=== PATIENT | female | born 1980 | race African-American/Black ===

== ENCOUNTER 2016-12-29 09:01 | Emergency (ER) | payer MEDICARE | END 2016-12-29 10:18 | disposition home or self-care (01) | LOC: D.ER 09:01 | DX: S16.1XXA Strain of muscle, fascia and tendon at neck level, initial encounter (principal); X50.0XXA Overexertion from strenuous movement or load, initial encounter; Y93.89 Activity, other specified; Y92.89 Other specified places as the place of occurrence of the external cause; M79.1 Myalgia; F17.200 Nicotine dependence, unspecified, uncomplicated ==

== ENCOUNTER 2017-01-31 09:41 | Emergency (ER) | payer MEDICARE ==
[2017-01-31 10:31] LABS: APPEARANCE CLOUDY (CLEAR); BACTERIA MANY /hpf (NONE SEEN); BILIRUBIN NEGATIVE (NEGATIVE); COLOR YELLOW (YELLOW); GLUCOSE NEGATIVE (NEGATIVE); KETONE MODERATE mg/dL (NEGATIVE); NITRITE POSITIVE (NEGATIVE); PROTEIN NEGATIVE (NEGATIVE); RED CELLS - URINE 0-5 /hpf (0-5); UROBILINOGEN NORMAL (NORMAL); WHITE CELLS - URINE 25-50 /hpf (0-5)
[2017-01-31 10:32] LABS: MUCUS <1+ /lpf (NONE SEEN); YEAST RARE /hpf (NONE SEEN)
[2017-01-31 11:02] LABS: BASOPHILS 0.3 % (0-2); EOSINOPHILS 0.7 % (0-7); HEMATOCRIT 41.3 % (36.0-48.0); IMMATURE GRANULOCYTES 0.2 % (0-5); LYMPHOCYTES 33.7 % (15-50); MCH 32.1 pg (26.0-34.0); MCHC 33.9 g/dL (31.0-37.0); MCV 94.7 fL (80.0-100.0); MEAN PLATELET VOLUME 10.7 fL (7.4-10.4); MONOCYTES 7.3 % (2-11); NEUTROPHILS 57.8 % (40-80); PLATELET COUNT 280 10x3/uL (130-400); RBC 4.36 10x6/uL (4.00-5.40)
[2017-01-31 11:18] LABS: ALBUMIN 4.5 g/dL (3.4-5.0); ALKALINE PHOSPHATASE 59 U/L (46-116); ALT (SGPT) 48 U/L (10-68); CALC OSMOLALITY 269 mosm/kg (275-300); CALCIUM 9.4 mg/dL (8.5-10.1); CARBON DIOXIDE 24.4 mmol/L (21.0-32.0); CHLORIDE - SERUM 98 mmol/L (98-107); CREATININE - SERUM 0.6 mg/dL (0.6-1.3); GLUCOSE 90 mg/dL (74-106); POTASSIUM - SERUM 4.1 mmol/L (3.5-5.1); PROTEIN - SERUM 8.6 g/dL (6.4-8.2); SODIUM 136 mmol/L (136-145); UREA NITROGEN 8 mg/dL (7-18); eGFR NON AFRICAN AMERICAN > 90 mL/min (90-120)
== END 2017-01-31 11:11 | disposition home or self-care (01) ==
LOC: D.ER 09:41
PROVIDERS: Family Medicine
DX: F23 Brief psychotic disorder (principal)

== ENCOUNTER 2017-02-25 09:05 | Emergency (ER) | payer MEDICARE | END 2017-02-25 10:00 | disposition home or self-care (01) | LOC: D.ER 09:05 | DX: M79.641 Pain in right hand (principal); F17.200 Nicotine dependence, unspecified, uncomplicated ==

== ENCOUNTER 2017-02-26 07:33 | Emergency (ER) | payer MEDICARE ==
[2017-02-26 07:56] LABS: BASOPHILS 0.5 % (0-2); EOSINOPHILS 8.5 % (0-7); HEMATOCRIT 38.1 % (36.0-48.0); HEMOGLOBIN 13.1 g/dL (12-16); LYMPHOCYTES 42.6 % (15-50); MCH 31.9 pg (26.0-34.0); MCHC 34.4 g/dL (31.0-37.0); MCV 92.7 fL (80.0-100.0); MEAN PLATELET VOLUME 9.6 fL (7.4-10.4); MONOCYTES 8.2 % (2-11); NEUTROPHILS 40.2 % (40-80); RBC 4.11 10x6/uL (4.00-5.40); RDW 13.7 % (11.5-14.5)
[2017-02-26 08:03] LABS: PLATELET COUNT 347 10x3/uL (130-400)
[2017-02-26 08:10] LABS: ALBUMIN 4.1 g/dL (3.4-5.0); ALKALINE PHOSPHATASE 53 U/L (46-116); ALT (SGPT) 39 U/L (10-68); BILIRUBIN - TOTAL 0.43 mg/dL (0.2-1.3); CALC OSMOLALITY 274 mosm/kg (275-300); CALCIUM 9.2 mg/dL (8.5-10.1); CARBON DIOXIDE 23.8 mmol/L (21.0-32.0); CHLORIDE - SERUM 104 mmol/L (98-107); CREATININE - SERUM 0.6 mg/dL (0.6-1.3); GLUCOSE 89 mg/dL (74-106); POTASSIUM - SERUM 4.3 mmol/L (3.5-5.1); PROTEIN - SERUM 7.7 g/dL (6.4-8.2); SODIUM 140 mmol/L (136-145); UREA NITROGEN 3 mg/dL (7-18); VALPROIC ACID (DEPAKOTE) 3.3 ug/mL (50.0-100.0); eGFR NON AFRICAN AMERICAN > 90 mL/min (90-120)
[2017-02-26 09:00] LABS: HCG URINE NEGATIVE (NEGATIVE)
[2017-02-26 09:07] LABS: APPEARANCE CLOUDY (CLEAR); BILIRUBIN NEGATIVE (NEGATIVE); COLOR YELLOW (YELLOW); GLUCOSE NEGATIVE (NEGATIVE); KETONE NEGATIVE (NEGATIVE); NITRITE POSITIVE (NEGATIVE); PROTEIN NEGATIVE (NEGATIVE); UROBILINOGEN NORMAL (NORMAL)
[2017-02-26 09:08] LABS: BACTERIA MANY /hpf (NONE SEEN); EPITHELIAL CELLS 0-5 /hpf (0-5); MUCUS >1+ /lpf (NONE SEEN); RED CELLS - URINE NONE SEEN /hpf (0-5); WHITE CELLS - URINE 0-5 /hpf (0-5)
[2017-02-26 09:14] LABS: UDS - AMPHET NEGATIVE QUAL (NEGATIVE); UDS - BARB NEGATIVE QUAL (NEGATIVE); UDS - BENZO NEGATIVE QUAL (NEGATIVE); UDS - COCAINE NEGATIVE QUAL (NEGATIVE); UDS - OPIATE NEGATIVE QUAL (NEGATIVE); UDS - PCP NEGATIVE QUAL (NEGATIVE); UDS - THC POSITIVE QUAL (NEGATIVE)
== END 2017-02-26 11:21 | disposition home or self-care (01) ==
LOC: D.ER 07:33
PROVIDERS: Emergency Medicine
DX: F31.2 Bipolar disorder, current episode manic severe with psychotic features (principal); F10.129 Alcohol abuse with intoxication, unspecified; N39.0 Urinary tract infection, site not specified

== ENCOUNTER 2017-03-08 10:53 | Emergency (ER) | payer MEDICARE ==
[2017-03-08 11:50] LABS: HCG URINE NEGATIVE (NEGATIVE)
[2017-03-08 11:53] LABS: UDS - AMPHET NEGATIVE QUAL (NEGATIVE); UDS - BARB NEGATIVE QUAL (NEGATIVE); UDS - BENZO NEGATIVE QUAL (NEGATIVE); UDS - COCAINE NEGATIVE QUAL (NEGATIVE); UDS - OPIATE NEGATIVE QUAL (NEGATIVE); UDS - PCP NEGATIVE QUAL (NEGATIVE); UDS - THC POSITIVE QUAL (NEGATIVE)
[2017-03-08 11:58] LABS: APPEARANCE CLOUDY (CLEAR); BACTERIA MANY /hpf (NONE SEEN); BILIRUBIN NEGATIVE (NEGATIVE); COLOR YELLOW (YELLOW); EPITHELIAL CELLS 0-5 /hpf (0-5); GLUCOSE NEGATIVE (NEGATIVE); KETONE SMALL mg/dL (NEGATIVE); NITRITE POSITIVE (NEGATIVE); PROTEIN NEGATIVE (NEGATIVE); UROBILINOGEN NORMAL (NORMAL); WHITE CELLS - URINE 0-5 /hpf (0-5)
[2017-03-08 11:59] LABS: MUCUS <1+ /lpf (NONE SEEN)
== END 2017-03-08 12:52 | disposition home or self-care (01) ==
LOC: D.ER 10:53
PROVIDERS: Family Medicine
DX: Z86.59 Personal history of other mental and behavioral disorders (principal); F22 Delusional disorders

== ENCOUNTER → 2017-03-31 15:45 | Outpatient (CLI) | payer MEDICARE ==
[2017-03-31 17:33] LABS: BASOPHILS 0.5 % (0-2); EOSINOPHILS 13.5 % (0-7); HEMOGLOBIN 13.3 g/dL (12-16); IMMATURE GRANULOCYTES 0.1 % (0-5); LYMPHOCYTES 34.3 % (15-50); MCH 32.4 pg (26.0-34.0); MCHC 34.1 g/dL (31.0-37.0); MCV 95.1 fL (80.0-100.0); MONOCYTES 5.4 % (2-11); NEUTROPHILS 46.2 % (40-80); PLATELET COUNT 322 10x3/uL (130-400); RDW 13.7 % (11.5-14.5); WBC 7.5 10x3/uL (4.8-10.8)
[2017-03-31 17:54] LABS: CALC OSMOLALITY 278 mosm/kg (275-300); CALCIUM 9.1 mg/dL (8.5-10.1); CARBON DIOXIDE 27.3 mmol/L (21.0-32.0); CHLORIDE - SERUM 103 mmol/L (98-107); CREATININE - SERUM 0.5 mg/dL (0.6-1.3); GLUCOSE 97 mg/dL (74-106); POTASSIUM - SERUM 4.5 mmol/L (3.5-5.1); SODIUM 140 mmol/L (136-145); THYROID STIMULATING HORMONE 0.76 uIU/mL (0.36-3.74); UREA NITROGEN 13 mg/dL (7-18); VALPROIC ACID (DEPAKOTE) 32.6 ug/mL (50.0-100.0); eGFR NON AFRICAN AMERICAN > 90 mL/min (90-120)
== END | disposition home or self-care (01) ==
LOC: D.LAB 15:45
PROVIDERS: Psychiatry & Neurology Psychiatry
DX: Z51.81 Encounter for therapeutic drug level monitoring (principal); Z79.899 Other long term (current) drug therapy

== ENCOUNTER 2017-04-12 07:09 | Emergency (ER) | payer MEDICARE | END 2017-04-12 07:40 | disposition home or self-care (01) | LOC: D.ER 07:09 | DX: K42.9 Umbilical hernia without obstruction or gangrene (principal) ==

== ENCOUNTER 2018-02-03 16:20 | Observation (INO) | payer MEDICARE ==
[~2018-02-03] VITALS: Ht 167.6 cm; Wt 65.9 kg
[2018-02-03 16:47] LABS: BASOPHILS 0.2 % (0-2); EOSINOPHILS 0.5 % (0-7); HEMATOCRIT 39.6 % (36.0-48.0); HEMOGLOBIN 13.6 g/dL (12-16); IMMATURE GRANULOCYTES 0.3 % (0-5); LYMPHOCYTES 17.4 % (15-50); MCH 31.7 pg (26.0-34.0); MCHC 34.3 g/dL (31.0-37.0); MCV 92.3 fL (80.0-100.0); MEAN PLATELET VOLUME 9.8 fL (7.4-10.4); MONOCYTES 9.3 % (2-11); NEUTROPHILS 72.3 % (40-80); RBC 4.29 10x6/uL (4.00-5.40); RDW 13.6 % (11.5-14.5); WBC 9.7 10x3/uL (4.8-10.8)
[2018-02-03 16:49] LABS: PLATELET COUNT 230 10x3/uL (130-400)
[2018-02-03 17:04] LABS: ALBUMIN 3.9 g/dL (3.4-5.0); ANION GAP 25.4 mmol/L (8-16); BILIRUBIN - TOTAL 0.75 mg/dL (0.2-1.3); CALCIUM 8.6 mg/dL (8.5-10.1); CARBON DIOXIDE 15.8 mmol/L (21.0-32.0); CREATININE - SERUM 0.9 mg/dL (0.6-1.3); MAGNESIUM - SERUM 1.7 mg/dL (1.8-2.4); POTASSIUM - SERUM 3.2 mmol/L (3.5-5.1); PROTEIN - SERUM 8.1 g/dL (6.4-8.2)
[2018-02-03 17:48] LABS: APPEARANCE CLEAR (CLEAR); BILIRUBIN NEGATIVE (NEGATIVE); COLOR YELLOW (YELLOW); GLUCOSE NEGATIVE (NEGATIVE); HCG URINE NEGATIVE (NEGATIVE); KETONE LARGE mg/dL (NEGATIVE); NITRITE NEGATIVE (NEGATIVE); PROTEIN NEGATIVE (NEGATIVE); UROBILINOGEN NORMAL (NORMAL)
[2018-02-03 17:49] LABS: BACTERIA MODERATE /hpf (NONE SEEN); EPITHELIAL CELLS 0-5 /hpf (0-5); RED CELLS - URINE 0-5 /hpf (0-5)
[2018-02-03 17:50] LABS: UDS - AMPHET NEGATIVE QUAL (NEGATIVE); UDS - BARB NEGATIVE QUAL (NEGATIVE); UDS - BENZO NEGATIVE QUAL (NEGATIVE); UDS - COCAINE NEGATIVE QUAL (NEGATIVE); UDS - OPIATE NEGATIVE QUAL (NEGATIVE); UDS - PCP NEGATIVE QUAL (NEGATIVE); UDS - THC POSITIVE QUAL (NEGATIVE)
[2018-02-04 01:16] VITALS: BP 143/86; Ht 167.6 cm; Wt 65.9 kg
[2018-02-04 05:24] VITALS: BP 152/85
[2018-02-04 06:20] LABS: CALC OSMOLALITY 271 mosm/kg (275-300); CALCIUM 8.1 mg/dL (8.5-10.1); CHLORIDE - SERUM 103 mmol/L (98-107); GLUCOSE 76 mg/dL (74-106); SODIUM 138 mmol/L (136-145); THYROID STIMULATING HORMONE 1.58 uIU/mL (0.36-3.74); UREA NITROGEN 5 mg/dL (7-18)
[2018-02-04 06:23] LABS: CARBON DIOXIDE 21.9 mmol/L (21.0-32.0); CREATININE - SERUM 0.6 mg/dL (0.6-1.3); POTASSIUM - SERUM 3.9 mmol/L (3.5-5.1); eGFR NON AFRICAN AMERICAN > 90 mL/min (90-120)
[2018-02-04 08:18] VITALS: BP 123/76
== END 2018-02-04 09:15 | disposition left against medical advice (07) ==
LOC: D.ER 16:20 → OBSVTIME 18:47 → D.M3 18:47
PROVIDERS: Family Medicine
DX: R44.0 Auditory hallucinations (principal); F31.9 Bipolar disorder, unspecified; E87.6 Hypokalemia; E87.2 Acidosis

== ENCOUNTER 2018-02-09 07:23 | Emergency (ER) | payer MEDICARE ==
[2018-02-09 07:38] VITALS: Ht 167.6 cm
[2018-02-09 08:25] LABS: BASOPHILS 0.5 % (0-2); EOSINOPHILS 0.7 % (0-7); HEMATOCRIT 36.1 % (36.0-48.0); HEMOGLOBIN 12.4 g/dL (12-16); IMMATURE GRANULOCYTES 0.3 % (0-5); LYMPHOCYTES 15.9 % (15-50); MCH 31.9 pg (26.0-34.0); MCHC 34.3 g/dL (31.0-37.0); MCV 92.8 fL (80.0-100.0); MEAN PLATELET VOLUME 9.5 fL (7.4-10.4); NEUTROPHILS 73.6 % (40-80); PLATELET COUNT 266 10x3/uL (130-400); RBC 3.89 10x6/uL (4.00-5.40); RDW 13.9 % (11.5-14.5)
[2018-02-09 08:49] LABS: ALBUMIN 3.7 g/dL (3.4-5.0); ALKALINE PHOSPHATASE 42 U/L (46-116); ALT (SGPT) 64 U/L (10-68); BILIRUBIN - TOTAL 0.71 mg/dL (0.2-1.3); CALC OSMOLALITY 271 mosm/kg (275-300); CALCIUM 8.7 mg/dL (8.5-10.1); CARBON DIOXIDE 19.5 mmol/L (21.0-32.0); CHLORIDE - SERUM 100 mmol/L (98-107); CREATININE - SERUM 0.7 mg/dL (0.6-1.3); GLUCOSE 76 mg/dL (74-106); POTASSIUM - SERUM 3.4 mmol/L (3.5-5.1); PROTEIN - SERUM 7.5 g/dL (6.4-8.2); SODIUM 137 mmol/L (136-145); UREA NITROGEN 10 mg/dL (7-18); eGFR NON AFRICAN AMERICAN > 90 mL/min (90-120)
[2018-02-09 09:04] LABS: APPEARANCE HAZY (CLEAR); BILIRUBIN NEGATIVE (NEGATIVE); COLOR DK YELLOW (YELLOW); GLUCOSE NEGATIVE (NEGATIVE); KETONE LARGE mg/dL (NEGATIVE); NITRITE NEGATIVE (NEGATIVE); PROTEIN 1+ mg/dL (NEGATIVE); SPECIFIC GRAVITY 1.025 (1.005-1.020); UROBILINOGEN NORMAL (NORMAL)
[2018-02-09 09:05] LABS: UDS - AMPHET NEGATIVE QUAL (NEGATIVE); UDS - BARB NEGATIVE QUAL (NEGATIVE); UDS - BENZO NEGATIVE QUAL (NEGATIVE); UDS - COCAINE NEGATIVE QUAL (NEGATIVE); UDS - OPIATE NEGATIVE QUAL (NEGATIVE); UDS - PCP NEGATIVE QUAL (NEGATIVE); UDS - THC POSITIVE QUAL (NEGATIVE)
[2018-02-09 09:07] LABS: CKMB 11.5 U/L (0.0-3.6); CREATINE KINASE 2719 UL (21-215); LIPASE 62 U/L (73-393); MAGNESIUM - SERUM 1.7 mg/dL (1.8-2.4)
[2018-02-09 09:08] LABS: BACTERIA MODERATE /hpf (NONE SEEN); EPITHELIAL CELLS OCC /hpf (0-5); MUCUS >1+ /lpf (NONE SEEN); RED CELLS - URINE 0-5 /hpf (0-5)
[2018-02-09 10:34] VITALS: BP 142/078
== END 2018-02-09 10:36 | disposition home or self-care (01) ==
LOC: D.ER 07:23
PROVIDERS: Family Medicine
DX: F29 Unspecified psychosis not due to a substance or known physiological condition (principal)

== ENCOUNTER 2018-02-20 01:55 | Emergency (ER) | payer MEDICARE, MEDICAID ==
[~2018-02-20] VITALS: Ht 167.6 cm; Wt 59.1 kg
[2018-02-20 01:56] VITALS: BP 154/105; Ht 167.6 cm; Wt 59.1 kg
[2018-02-20 02:53] LABS: BASOPHILS 0.6 % (0-2); EOSINOPHILS 3.6 % (0-7); HEMATOCRIT 41.6 % (36.0-48.0); HEMOGLOBIN 14.2 g/dL (12-16); LYMPHOCYTES 37.1 % (15-50); MCH 32.2 pg (26.0-34.0); MCHC 34.1 g/dL (31.0-37.0); MCV 94.3 fL (80.0-100.0); MONOCYTES 8.2 % (2-11); NEUTROPHILS 50.5 % (40-80); RBC 4.41 10x6/uL (4.00-5.40); RDW 13.3 % (11.5-14.5); WBC 5.3 10x3/uL (4.8-10.8)
[2018-02-20 02:54] LABS: APPEARANCE CLEAR (CLEAR); BILIRUBIN NEGATIVE (NEGATIVE); COLOR YELLOW (YELLOW); GLUCOSE NEGATIVE (NEGATIVE); KETONE NEGATIVE (NEGATIVE); NITRITE NEGATIVE (NEGATIVE); PROTEIN NEGATIVE (NEGATIVE); SPECIFIC GRAVITY 1.015 (1.005-1.020); UROBILINOGEN NORMAL (NORMAL)
[2018-02-20 02:57] LABS: HCG SERUM NEGATIVE (NEGATIVE)
[2018-02-20 02:58] LABS: PLATELET COUNT 362 10x3/uL (130-400)
[2018-02-20 03:01] LABS: UDS - AMPHET NEGATIVE QUAL (NEGATIVE); UDS - BARB NEGATIVE QUAL (NEGATIVE); UDS - BENZO NEGATIVE QUAL (NEGATIVE); UDS - COCAINE NEGATIVE QUAL (NEGATIVE); UDS - OPIATE NEGATIVE QUAL (NEGATIVE); UDS - PCP NEGATIVE QUAL (NEGATIVE); UDS - THC POSITIVE QUAL (NEGATIVE)
[2018-02-20 03:11] LABS: CALC OSMOLALITY 273 mosm/kg (275-300); CHLORIDE - SERUM 99 mmol/L (98-107); CREATININE - SERUM 0.7 mg/dL (0.6-1.3); GLUCOSE 76 mg/dL (74-106); POTASSIUM - SERUM 3.3 mmol/L (3.5-5.1); SODIUM 138 mmol/L (136-145); UREA NITROGEN 10 mg/dL (7-18); eGFR NON AFRICAN AMERICAN > 90 mL/min (90-120)
== END 2018-02-20 03:10 | disposition left against medical advice (07) ==
LOC: D.ER 01:55
PROVIDERS: Family Medicine
DX: F23 Brief psychotic disorder (principal); R45.1 Restlessness and agitation; F17.200 Nicotine dependence, unspecified, uncomplicated

== ENCOUNTER 2018-03-15 05:28 | Emergency (ER) | payer MEDICARE, MEDICAID ==
[~2018-03-15] VITALS: Ht 170.2 cm; Wt 57.7 kg
[2018-03-15 05:33] VITALS: Ht 170.2 cm; Wt 57.7 kg
[2018-03-15] MEDS ORDERED: REMERON15 MG PO (05:35)
[2018-03-15] MEDS ORDERED: INVEGA 3 MG ER T3 MG PO (05:35)
[2018-03-15] MEDS ORDERED: DEPAKOTE500 MG PO (05:35)
[2018-03-15 06:34] VITALS: BP 135/69
== END 2018-03-15 06:36 | disposition left against medical advice (07) ==
LOC: D.ER 05:28
DX: F31.9 Bipolar disorder, unspecified (principal); F17.200 Nicotine dependence, unspecified, uncomplicated

== ENCOUNTER 2018-03-15 22:39 | Emergency (ER) | payer MEDICARE, MEDICAID ==
[~2018-03-15] VITALS: Ht 170.2 cm; Wt 63.6 kg
[~2018-03-15 22:39] MED LIST: DEPAKOTE500 MG PO; INVEGA 3 MG ER T3 MG PO; REMERON15 MG PO
[2018-03-15 22:42] VITALS: BP 129/59; Ht 170.2 cm; Wt 63.6 kg
[2018-03-15 23:20] LABS: BASOPHILS 0.4 % (0-2); EOSINOPHILS 4.3 % (0-7); HEMOGLOBIN 12.4 g/dL (12-16); LYMPHOCYTES 41.1 % (15-50); MCH 31.6 pg (26.0-34.0); MCHC 34.4 g/dL (31.0-37.0); MCV 91.8 fL (80.0-100.0); MEAN PLATELET VOLUME 10.2 fL (7.4-10.4); MONOCYTES 8.4 % (2-11); NEUTROPHILS 45.8 % (40-80); RBC 3.92 10x6/uL (4.00-5.40); WBC 4.9 10x3/uL (4.8-10.8)
[2018-03-15 23:21] LABS: PLATELET COUNT 285 10x3/uL (130-400)
[2018-03-15 23:37] LABS: ALKALINE PHOSPHATASE 50 U/L (46-116); ALT (SGPT) 41 U/L (10-68); BILIRUBIN - TOTAL 0.79 mg/dL (0.2-1.3); CALC OSMOLALITY 275 mosm/kg (275-300); CALCIUM 8.8 mg/dL (8.5-10.1); CARBON DIOXIDE 22.4 mmol/L (21.0-32.0); CHLORIDE - SERUM 102 mmol/L (98-107); CREATININE - SERUM 0.6 mg/dL (0.6-1.3); GLUCOSE 99 mg/dL (74-106); POTASSIUM - SERUM 3.4 mmol/L (3.5-5.1); PROTEIN - SERUM 7.7 g/dL (6.4-8.2); SODIUM 139 mmol/L (136-145); UREA NITROGEN 7 mg/dL (7-18); eGFR NON AFRICAN AMERICAN > 90 mL/min (90-120)
[2018-03-15 23:38] LABS: MAGNESIUM - SERUM 1.8 mg/dL (1.8-2.4)
[2018-03-16 00:17] LABS: UDS - AMPHET NEGATIVE QUAL (NEGATIVE); UDS - BARB NEGATIVE QUAL (NEGATIVE); UDS - BENZO NEGATIVE QUAL (NEGATIVE); UDS - COCAINE NEGATIVE QUAL (NEGATIVE); UDS - OPIATE NEGATIVE QUAL (NEGATIVE); UDS - PCP NEGATIVE QUAL (NEGATIVE); UDS - THC POSITIVE QUAL (NEGATIVE)
[2018-03-16 00:22] LABS: APPEARANCE CLOUDY (CLEAR); BILIRUBIN NEGATIVE (NEGATIVE); COLOR DK YELLOW (YELLOW); GLUCOSE NEGATIVE (NEGATIVE); HCG URINE NEGATIVE (NEGATIVE); KETONE NEGATIVE (NEGATIVE); NITRITE NEGATIVE (NEGATIVE); PROTEIN 1+ mg/dL (NEGATIVE); SPECIFIC GRAVITY 1.025 (1.005-1.020); UROBILINOGEN NORMAL (NORMAL)
[2018-03-16 00:24] LABS: BACTERIA FEW /hpf (NONE SEEN); EPITHELIAL CELLS 0-5 /hpf (0-5); MUCUS >1+ /lpf (NONE SEEN); RED CELLS - URINE 0-5 /hpf (0-5)
== END 2018-03-16 00:33 | disposition home or self-care (01) ==
LOC: D.ER 22:39
PROVIDERS: Family Medicine
DX: F22 Delusional disorders (principal); F17.200 Nicotine dependence, unspecified, uncomplicated

== ENCOUNTER 2018-06-17 11:44 | Emergency (ER) | payer MEDICARE ==
[2018-06-17 11:54] VITALS: BMI 19.0
[2018-06-17 12:32] LABS: BASOPHILS 0.7 % (0-2); HEMOGLOBIN 13.3 g/dL (12-16); IMMATURE GRANULOCYTES 0.2 % (0-5); LYMPHOCYTES 28.5 % (15-50); MCH 31.1 pg (26.0-34.0); MCHC 34.1 g/dL (31.0-37.0); MCV 91.1 fL (80.0-100.0); MEAN PLATELET VOLUME 9.7 fL (7.4-10.4); MONOCYTES 6.4 % (2-11); NEUTROPHILS 62.2 % (40-80); RBC 4.28 10x6/uL (4.00-5.40); RDW 13.2 % (11.5-14.5); WBC 5.9 10x3/uL (4.8-10.8)
[2018-06-17 12:33] LABS: INR 1.03 (0.85-1.17)
[2018-06-17 12:34] LABS: D-DIMER-QUANTITATIVE 0.32 ug/mLFEU (0.20-0.54); HCG SERUM NEGATIVE (NEGATIVE); PLATELET COUNT 381 10x3/uL (130-400)
[2018-06-17 12:36] LABS: ALBUMIN 3.6 g/dL (3.4-5.0); ALKALINE PHOSPHATASE 62 U/L (46-116); ALT (SGPT) 24 U/L (10-68); BILIRUBIN - TOTAL 0.45 mg/dL (0.2-1.3); CALC OSMOLALITY 270 mosm/kg (275-300); CALCIUM 8.8 mg/dL (8.5-10.1); CARBON DIOXIDE 26.1 mmol/L (21.0-32.0); CHLORIDE - SERUM 102 mmol/L (98-107); CREATININE - SERUM 0.8 mg/dL (0.6-1.3); GLUCOSE 93 mg/dL (74-106); POTASSIUM - SERUM 3.6 mmol/L (3.5-5.1); PROTEIN - SERUM 7.7 g/dL (6.4-8.2); SODIUM 137 mmol/L (136-145); UREA NITROGEN 4 mg/dL (7-18); eGFR NON AFRICAN AMERICAN 85 mL/min (90-120)
[2018-06-17 12:48] LABS: CKMB 1.3 U/L (0.0-3.6); CREATINE KINASE 277 UL (21-215); PRO BNP 89 pg/mL (0-125)
[2018-06-17 12:49] LABS: TROPONIN-I < 0.017 ng/mL (0.000-0.060)
[2018-06-17] MEDS ORDERED: AUGMENTIN 875-11 TAB PO (12:56)
[2018-06-17 13:08] VITALS: BP 128/68
== END 2018-06-17 13:10 | disposition home or self-care (01) ==
LOC: D.ER 11:44
PROVIDERS: Family Medicine
DX: J40 Bronchitis, not specified as acute or chronic (principal); R04.2 Hemoptysis

== ENCOUNTER 2018-06-20 15:56 | Emergency (ER) | payer MEDICARE ==
[~2018-06-20 15:56] MED LIST changes: +AUGMENTIN 875-11 TAB PO
[2018-06-20 16:03] VITALS: BP 116/68; Ht 170.2 cm
== END 2018-06-20 16:45 | disposition home or self-care (01) ==
LOC: D.ER 15:56
DX: F43.9 Reaction to severe stress, unspecified (principal)

== ENCOUNTER 2019-02-21 13:08 | Emergency (ER) | payer SELFPAY ==
[~2019-02-21] VITALS: Ht 170.2 cm; Wt 61.4 kg
[2019-02-21 13:22] VITALS: Ht 170.2 cm; Wt 61.4 kg
[2019-02-21] MEDS ORDERED: TYLENOL W/CODEI1 TAB PO ×2 (13:25→13:49)
[2019-02-21] MEDS ORDERED: HYDROCODON-ACE1 EAC2 PO (13:26)
[2019-02-21] MEDS ORDERED: HYDROCODON-ACE1 EA10 PO (13:26)
[2019-02-21] MEDS ORDERED: PROTONIX20 MG PO (13:49)
[2019-02-21 14:03] LABS: APPEARANCE CLOUDY (CLEAR); BILIRUBIN NEGATIVE (NEGATIVE); COLOR YELLOW (YELLOW); GLUCOSE NEGATIVE (NEGATIVE); KETONE SMALL mg/dL (NEGATIVE); NITRITE NEGATIVE (NEGATIVE); PROTEIN NEGATIVE (NEGATIVE); RED CELLS - URINE RARE /hpf (0-5); SPECIFIC GRAVITY 1.025 (1.005-1.020); UROBILINOGEN NORMAL (NORMAL)
[2019-02-21 14:04] LABS: BACTERIA MODERATE /hpf (NEGATIVE); MUCUS <1+ /lpf (NONE SEEN)
[2019-02-21 14:15] LABS: HCG URINE NEGATIVE (NEGATIVE)
[2019-02-21 14:31] VITALS: BP 144/89
== END 2019-02-21 14:46 | disposition home or self-care (01) ==
LOC: D.ER 13:08
PROVIDERS: Emergency Medicine
DX: R10.13 Epigastric pain (principal)

== ENCOUNTER 2019-05-26 09:16 | Emergency (ER) | payer OTHER ==
[~2019-05-26] VITALS: Ht 170.2 cm; Wt 56.8 kg
[~2019-05-26 09:16] MED LIST changes: +HYDROCODON-ACE1 EA10 PO; +HYDROCODON-ACE1 EAC2 PO; +PROTONIX20 MG PO; +TYLENOL W/CODEI1 TAB PO
[2019-05-26 09:21] VITALS: Ht 170.2 cm; Wt 56.8 kg
[2019-05-26 09:40] LABS: BASOPHILS 0.8 % (0-2); EOSINOPHILS 3.8 % (0-7); HEMATOCRIT 41.6 % (36.0-48.0); HEMOGLOBIN 13.8 g/dL (12-16); IMMATURE GRANULOCYTES 0.2 % (0-5); LYMPHOCYTES 28.1 % (15-50); MCH 30.5 pg (26.0-34.0); MCHC 33.2 g/dL (31.0-37.0); MEAN PLATELET VOLUME 9.5 fL (7.4-10.4); MONOCYTES 7.4 % (2-11); NEUTROPHILS 59.7 % (40-80); PLATELET COUNT 384 10x3/uL (130-400); RBC 4.52 10x6/uL (4.00-5.40)
[2019-05-26 09:48] LABS: APTT 29.8 SECONDS (22.8-39.4); PROTIME 13.1 SECONDS (11.6-15.0)
[2019-05-26 09:50] LABS: CALC OSMOLALITY 272 mosm/kg (275-300); CALCIUM 9.3 mg/dL (8.5-10.1); CARBON DIOXIDE 24.7 mmol/L (21.0-32.0); CHLORIDE - SERUM 101 mmol/L (98-107); CREATININE - SERUM 0.8 mg/dL (0.6-1.3); D-DIMER-QUANTITATIVE < 0.27 ug/mLFEU (0.20-0.54); GLUCOSE 113 mg/dL (74-106); POTASSIUM - SERUM 3.5 mmol/L (3.5-5.1); SODIUM 137 mmol/L (136-145); UREA NITROGEN 6 mg/dL (7-18); eGFR NON AFRICAN AMERICAN 85 mL/min (90-120)
[2019-05-26 10:07] LABS: ALBUMIN 4.5 g/dL (3.4-5.0); ALKALINE PHOSPHATASE 75 U/L (30-120); ALT (SGPT) 26 U/L (10-68); BILIRUBIN - TOTAL 0.74 mg/dL (0.2-1.3); CKMB 0.2 U/L (0.0-3.6); CREATINE KINASE 178 UL (21-215); PRO BNP 46 pg/mL (0-125); PROTEIN - SERUM 9.2 g/dL (6.4-8.2)
[2019-05-26 10:08] LABS: TROPONIN-I < 0.017 ng/mL (0.000-0.060)
[2019-05-26 10:24] VITALS: BP 122/68
== END 2019-05-26 10:25 | disposition home or self-care (01) ==
LOC: D.ER 09:16
PROVIDERS: Family Medicine
DX: R06.02 Shortness of breath (principal); Z72.0 Tobacco use

== ENCOUNTER 2019-06-02 05:14 | Emergency (ER) | payer OTHER ==
[~2019-06-02] VITALS: Ht 170.2 cm; Wt 57.6 kg
[2019-06-02 05:20] VITALS: Ht 170.2 cm; Wt 57.6 kg
[2019-06-02 06:55] VITALS: BP 122/77
== END 2019-06-02 06:57 | disposition home or self-care (01) ==
LOC: D.ER 05:14
DX: R05 Cough (principal); R06.02 Shortness of breath

== ENCOUNTER 2019-06-02 15:08 | Emergency (ER) | payer OTHER ==
[2019-06-02 15:10] VITALS: Ht 170.2 cm
--- NOTE | 2019-06-02 15:45 | NUR ---
According to the suicide screen, the patient scores low for suicide and she will not need a 1:1 observation. Suicide flyer provided.
[2019-06-02 15:50] LABS: BASOPHILS 0.6 % (0-2); EOSINOPHILS 0.4 % (0-7); HEMATOCRIT 36.1 % (36.0-48.0); HEMOGLOBIN 11.9 g/dL (12-16); IMMATURE GRANULOCYTES 0.2 % (0-5); LYMPHOCYTES 24.4 % (15-50); MCH 30.4 pg (26.0-34.0); MCV 92.3 fL (80.0-100.0); MEAN PLATELET VOLUME 9.6 fL (7.4-10.4); MONOCYTES 7.4 % (2-11); RBC 3.91 10x6/uL (4.00-5.40); RDW 14.2 % (11.5-14.5)
[2019-06-02 15:51] LABS: PLATELET COUNT 287 10x3/uL (130-400)
[2019-06-02 16:00] LABS: CALC OSMOLALITY 274 mosm/kg (275-300); CALCIUM 9.1 mg/dL (8.5-10.1); CHLORIDE - SERUM 103 mmol/L (98-107); CREATININE - SERUM 0.7 mg/dL (0.6-1.3); GLUCOSE 83 mg/dL (74-106); POTASSIUM - SERUM 3.7 mmol/L (3.5-5.1); SODIUM 140 mmol/L (136-145); UREA NITROGEN 5 mg/dL (7-18); eGFR NON AFRICAN AMERICAN > 90 mL/min (90-120)
[2019-06-02 16:00] LABS: HCG SERUM NEGATIVE (NEGATIVE)
[2019-06-02 16:05] LABS: ALBUMIN 4.4 g/dL (3.4-5.0); ALKALINE PHOSPHATASE 57 U/L (30-120); ALT (SGPT) 22 U/L (10-68); BILIRUBIN - TOTAL 0.57 mg/dL (0.2-1.3); PROTEIN - SERUM 7.8 g/dL (6.4-8.2)
[2019-06-02 16:30] VITALS: BP 112/60
== END 2019-06-02 16:31 | disposition home or self-care (01) ==
LOC: D.ER 15:08
PROVIDERS: Emergency Medicine
DX: F41.9 Anxiety disorder, unspecified (principal); F20.9 Schizophrenia, unspecified

== ENCOUNTER 2019-06-04 14:36 | Emergency (ER) | payer OTHER ==
[~2019-06-04] VITALS: Ht 170.2 cm; Wt 57.7 kg
[2019-06-04 14:42] VITALS: BP 139/89; Ht 170.2 cm; Wt 57.7 kg
[2019-06-04] MEDS ORDERED: NAPROSYN500 MG PO (14:48)
[2019-06-04] MEDS ORDERED: KEFLEX500 MG PO (14:48)
[2019-06-05] MEDS ORDERED: TESSALON PERLE100 MG PO (08:47)
== END 2019-06-04 15:00 | disposition home or self-care (01) ==
LOC: D.ER 14:36
DX: S61.419A Laceration without foreign body of unspecified hand, initial encounter (principal); W45.8XXA Other foreign body or object entering through skin, initial encounter; Y93.9 Activity, unspecified; Y92.9 Unspecified place or not applicable

== ENCOUNTER 2019-06-05 07:46 | Emergency (ER) | payer OTHER ==
[~2019-06-05] VITALS: Ht 170.2 cm; Wt 57.7 kg
[~2019-06-05 07:46] MED LIST changes: +KEFLEX500 MG PO; +NAPROSYN500 MG PO
[2019-06-05 08:00] VITALS: Ht 170.2 cm; Wt 57.7 kg
[2019-06-05] MEDS ORDERED: TESSALON PERLE100 MG PO (08:47)
[2019-06-05 08:52] VITALS: BP 151/102
[2019-06-06] MEDS ORDERED: MACROBID100 MG PO (16:45)
== END 2019-06-05 08:52 | disposition home or self-care (01) ==
LOC: D.ER 07:46
DX: R05 Cough (principal); J40 Bronchitis, not specified as acute or chronic; Z72.0 Tobacco use

== ENCOUNTER 2019-06-06 15:47 | Emergency (ER) | payer OTHER ==
[~2019-06-06] VITALS: Ht 170.2 cm; Wt 57.7 kg
[~2019-06-06 15:47] MED LIST changes: +TESSALON PERLE100 MG PO
[2019-06-06 16:00] VITALS: BP 146/90; Ht 170.2 cm; Wt 57.7 kg
[2019-06-06 16:29] LABS: BILIRUBIN NEGATIVE (NEGATIVE); GLUCOSE NEGATIVE (NEGATIVE); KETONE SMALL mg/dL (NEGATIVE); NITRITE NEGATIVE (NEGATIVE); UROBILINOGEN NORMAL (NORMAL)
[2019-06-06 16:30] LABS: EPITHELIAL CELLS 0-5 /hpf (0-5); RED CELLS - URINE OCC /hpf (0-5)
[2019-06-06 16:31] LABS: BACTERIA FEW /hpf (NEGATIVE)
[2019-06-06] MEDS ORDERED: MACROBID100 MG PO (16:45)
== END 2019-06-07 09:33 | disposition home or self-care (01) ==
LOC: D.ER 15:47
PROVIDERS: Family Medicine
DX: N39.0 Urinary tract infection, site not specified (principal)

== ENCOUNTER 2019-06-07 23:58 | Emergency (ER) | payer OTHER ==
[~2019-06-07] VITALS: Ht 170.2 cm; Wt 57.7 kg
[~2019-06-07 23:58] MED LIST changes: +MACROBID100 MG PO
[2019-06-08 00:05] VITALS: Ht 170.2 cm; Wt 57.7 kg
[2019-06-08 00:29] VITALS: BP 129/90
== END 2019-06-08 00:30 | disposition home or self-care (01) ==
LOC: D.ER 23:58
DX: Z76.5 Malingerer [conscious simulation] (principal); R45.1 Restlessness and agitation; F41.9 Anxiety disorder, unspecified; M54.9 Dorsalgia, unspecified

== ENCOUNTER 2019-06-08 01:04 | Emergency (ER) | payer OTHER ==
[~2019-06-08] VITALS: Ht 170.2 cm; Wt 57.7 kg
[2019-06-08 01:18] VITALS: BP 145/91; Ht 170.2 cm; Wt 57.7 kg
--- NOTE | 2019-06-08 02:37 | NUR ---
DR GUO CALLED IN REGARDS TO PATIENTS BEHAVIOR AND ASSESSMENT FINDINGS. PATIENT IS A LOW RISK PER DR GUO. NO OTHER ORDERS RECEIVED. INSTRUCTED TO GIVE PATIENT RESOURCE SHEET AT TIME OF DISCHARGE. INFORMATION COVERED WITH PATIENT AND SHE VERBALIZED UNDERSTANDING.
[2019-06-08 02:59] LABS: BASOPHILS 0.2 % (0-2); EOSINOPHILS 1.1 % (0-7); HEMOGLOBIN 11.8 g/dL (12-16); IMMATURE GRANULOCYTES 0.2 % (0-5); LYMPHOCYTES 18.9 % (15-50); MCH 30.6 pg (26.0-34.0); MCHC 33.7 g/dL (31.0-37.0); MCV 90.7 fL (80.0-100.0); MEAN PLATELET VOLUME 9.4 fL (7.4-10.4); MONOCYTES 10.2 % (2-11); NEUTROPHILS 69.4 % (40-80); RBC 3.86 10x6/uL (4.00-5.40); RDW 13.8 % (11.5-14.5); WBC 9.2 10x3/uL (4.8-10.8)
[2019-06-08 03:00] LABS: PLATELET COUNT 346 10x3/uL (130-400)
[2019-06-08 03:10] LABS: CALC OSMOLALITY 264 mosm/kg (275-300); CALCIUM 8.8 mg/dL (8.5-10.1); CARBON DIOXIDE 21.3 mmol/L (21.0-32.0); CHLORIDE - SERUM 97 mmol/L (98-107); CREATININE - SERUM 0.6 mg/dL (0.6-1.3); GLUCOSE 93 mg/dL (74-106); POTASSIUM - SERUM 3.4 mmol/L (3.5-5.1); SODIUM 134 mmol/L (136-145); UREA NITROGEN 3 mg/dL (7-18); eGFR NON AFRICAN AMERICAN > 90 mL/min (90-120)
[2019-06-08 03:16] LABS: ALBUMIN 3.9 g/dL (3.4-5.0); ALKALINE PHOSPHATASE 73 U/L (30-120); ALT (SGPT) 43 U/L (10-68); BILIRUBIN - TOTAL 0.75 mg/dL (0.2-1.3); C-REACTIVE PROTEIN 11.5 mg/dL (0.0-0.9); PROTEIN - SERUM 8.3 g/dL (6.4-8.2)
== END 2019-06-08 03:54 | disposition home or self-care (01) ==
LOC: D.ER 01:04
PROVIDERS: Family Medicine
DX: Z20.828 Contact with and (suspected) exposure to other viral communicable diseases (principal); M54.5 Low back pain

== ENCOUNTER 2019-06-17 09:55 | Emergency (ER) | payer OTHER ==
[~2019-06-17] VITALS: Ht 170.2 cm; Wt 70.5 kg
[2019-06-17 09:59] VITALS: Ht 170.2 cm; Wt 70.5 kg
[2019-06-17] MEDS ORDERED: TYLENOL ARTHRI650 MG PO (11:19)
[2019-06-17 11:45] VITALS: BP 167/87
== END 2019-06-17 11:46 | disposition home or self-care (01) ==
LOC: D.ER 09:55
DX: S82.145A Nondisplaced bicondylar fracture of left tibia, initial encounter for closed fracture (principal); X58.XXXA Exposure to other specified factors, initial encounter

== ENCOUNTER 2019-06-19 02:41 | Emergency (ER) | payer OTHER ==
[~2019-06-19] VITALS: Ht 170.2 cm; Wt 54.5 kg
[~2019-06-19 02:41] MED LIST changes: +TYLENOL ARTHRI650 MG PO
[2019-06-19 02:52] VITALS: Ht 170.2 cm; Wt 54.5 kg
[2019-06-19] MEDS ORDERED: [UNRECOGNIZED DRUG - REMARK] (02:54)
[2019-06-19 03:44] LABS: HCG URINE NEGATIVE (NEGATIVE); UDS - AMPHET NEGATIVE QUAL (NEGATIVE); UDS - BARB NEGATIVE QUAL (NEGATIVE); UDS - BENZO NEGATIVE QUAL (NEGATIVE); UDS - COCAINE NEGATIVE QUAL (NEGATIVE); UDS - OPIATE NEGATIVE QUAL (NEGATIVE); UDS - PCP NEGATIVE QUAL (NEGATIVE); UDS - THC POSITIVE QUAL (NEGATIVE)
[2019-06-19 03:48] LABS: BILIRUBIN NEGATIVE (NEGATIVE); GLUCOSE NEGATIVE (NEGATIVE); KETONE NEGATIVE (NEGATIVE); NITRITE NEGATIVE (NEGATIVE); UROBILINOGEN 4 mg/dL (NORMAL)
[2019-06-19 03:51] LABS: BACTERIA FEW /hpf (NEGATIVE); EPITHELIAL CELLS 0-5 /hpf (0-5); RED CELLS - URINE 0-5 /hpf (0-5); WHITE CELLS - URINE 0-5 /hpf (NEGATIVE)
--- NOTE | 2019-06-19 04:16 | NUR ---
DOCTOR GUO NOTIFIED AND REVIEWED ASSESSMENT FINDINGS. DOCTOR GUO STATES SHE IS A LOW RISK PER ASSESSMENT. ORDERS TO GIVE EDUCATION AND RESOURCES UPON DISCHARGE.
[2019-06-19 04:26] VITALS: BP 124/71
== END 2019-06-19 04:26 | disposition home or self-care (01) ==
LOC: D.ER 02:41
PROVIDERS: Family Medicine
DX: A59.9 Trichomoniasis, unspecified (principal); A64 Unspecified sexually transmitted disease; N89.8 Other specified noninflammatory disorders of vagina

== ENCOUNTER 2020-04-28 00:11 | Emergency (ER) | payer OTHER ==
[~2020-04-28] VITALS: Ht 170.2 cm; Wt 58.2 kg
[~2020-04-28 00:11] MED LIST changes: +[UNRECOGNIZED DRUG - REMARK]
[2020-04-28 00:16] VITALS: BP 143/93; Ht 170.2 cm; Wt 58.2 kg
[2020-04-28] MEDS ORDERED: BUSPAR5 MG PO (00:19)
[2020-04-28] MEDS ORDERED: ANXIETY MED (00:19)
--- NOTE | 2020-04-28 01:04 | NUR ---
RECEIVED PATIENT IN ER- SHE IS HERE FOR A TEST AND A BROKEN FINGERNAIL. SHE DENIES BEING SUICIDIAL. 1800 NUMBER GIVEN FOR A FUTURE REFERENCE.
[2020-04-28] MEDS ORDERED: BENZTROPINE MESY1 MG PO (10:34)
== END 2020-04-28 02:25 | disposition left against medical advice (07) ==
LOC: D.ER 00:11
DX: Z20.2 Contact with and (suspected) exposure to infections with a predominantly sexual mode of transmission (principal)

== ENCOUNTER 2020-04-28 09:49 | Emergency (ER) | payer OTHER ==
[~2020-04-28] VITALS: Ht 170.2 cm; Wt 65.9 kg
[~2020-04-28 09:49] MED LIST changes: +ANXIETY MED; +BUSPAR5 MG PO
[2020-04-28 09:57] VITALS: BP 126/95; Ht 170.2 cm; Wt 65.9 kg
[2020-04-28] MEDS ORDERED: BENZTROPINE MESY1 MG PO (10:34)
== END 2020-04-28 11:41 | disposition home or self-care (01) ==
LOC: D.ER 09:49
DX: G24.09 Other drug induced dystonia (principal)

== ENCOUNTER 2020-05-08 06:45 | Emergency (ER) | payer OTHER ==
[~2020-05-08 06:45] MED LIST changes: +BENZTROPINE MESY1 MG PO
[2020-05-08 06:56] VITALS: Ht 170.2 cm
[2020-05-08] MEDS ORDERED: ABILIFY10 MG PO (07:00)
[2020-05-08] MEDS ORDERED: VIC-FORTE CAPSUL1 MG PO (07:01)
[2020-05-08 07:27] LABS: HCG URINE NEGATIVE (NEGATIVE)
[2020-05-08 07:50] LABS: BILIRUBIN NEGATIVE (NEGATIVE); KETONE NEGATIVE (NEGATIVE); NITRITE NEGATIVE (NEGATIVE); SQUAMOUS EPITHELIAL 0-5 HPF (0-4); UROBILINOGEN NORMAL mg/dL (< 2); WHITE CELLS - URINE 0-5 HPF (0-4)
[2020-05-08 07:51] LABS: BACTERIA FEW HPF (NONE SEEN)
[2020-05-08 09:16] VITALS: BP 149/94
[2020-05-10 14:09] LABS: CHLAMYDIA TRACHOMATIS, NAA Negative (Negative)
== END 2020-05-09 15:35 | disposition home or self-care (01) ==
LOC: D.ER 06:45
PROVIDERS: Family Medicine
DX: N39.0 Urinary tract infection, site not specified (principal); R10.9 Unspecified abdominal pain

== ENCOUNTER 2020-05-13 19:38 | Emergency (ER) | payer OTHER ==
[~2020-05-13] VITALS: Ht 170.2 cm; Wt 49.9 kg
[~2020-05-13 19:38] MED LIST changes: +ABILIFY10 MG PO; +VIC-FORTE CAPSUL1 MG PO
[2020-05-13 19:43] VITALS: Ht 170.2 cm; Wt 49.9 kg
[2020-05-13 20:20] LABS: BASOPHILS 0.5 % (0-2); EOSINOPHILS 7.8 % (0-7); HEMATOCRIT 36.2 % (36.0-48.0); HEMOGLOBIN 12.1 g/dL (12-16); IMMATURE GRANULOCYTES 0.3 % (0-5); LYMPHOCYTE ABS# 1.81 10x3/uL (1.18-3.74); LYMPHOCYTES 45.3 % (15-50); MCH 30.5 pg (26.0-34.0); MCHC 33.4 g/dL (31.0-37.0); MCV 91.2 fL (80.0-100.0); MEAN PLATELET VOLUME 9.2 fL (7.4-10.4); MONOCYTES 8.5 % (2-11); NEUTROPHIL ABS# 1.51 10x3/uL (1.56-6.13); NEUTROPHILS 37.6 % (40-80); PLATELET COUNT 327 10x3/uL (130-400); RBC 3.97 10x6/uL (4.00-5.40); RDW 13.8 % (11.5-14.5)
[2020-05-13 20:21] LABS: CALC OSMOLALITY 272 mosm/kg (275-300); CALCIUM 8.9 mg/dL (8.5-10.1); CARBON DIOXIDE 24.7 mmol/L (21.0-32.0); CHLORIDE - SERUM 102 mmol/L (98-107); CREATININE - SERUM 0.6 mg/dL (0.6-1.3); GLUCOSE 87 mg/dL (74-106); POTASSIUM - SERUM 3.8 mmol/L (3.5-5.1); SODIUM 138 mmol/L (136-145); UREA NITROGEN 6 mg/dL (7-18); eGFR NON AFRICAN AMERICAN > 90 mL/min (90-120)
[2020-05-13 20:32] LABS: ALKALINE PHOSPHATASE 47 U/L (30-120); ALT (SGPT) 37 U/L (10-68); BILIRUBIN - TOTAL 0.35 mg/dL (0.2-1.3); MAGNESIUM - SERUM 2.1 mg/dL (1.8-2.4); PROTEIN - SERUM 7.6 g/dL (6.4-8.2)
[2020-05-13 20:56] LABS: BILIRUBIN NEGATIVE (NEGATIVE); KETONE MODERATE mg/dL (NEGATIVE); NITRITE NEGATIVE (NEGATIVE); UROBILINOGEN NORMAL mg/dL (< 2)
[2020-05-13 20:56] LABS: HCG URINE NEGATIVE (NEGATIVE)
[2020-05-13 21:02] LABS: UDS - AMPHET NEGATIVE QUAL (NEGATIVE); UDS - BARB NEGATIVE QUAL (NEGATIVE); UDS - BENZO NEGATIVE QUAL (NEGATIVE); UDS - COCAINE NEGATIVE QUAL (NEGATIVE); UDS - OPIATE NEGATIVE QUAL (NEGATIVE); UDS - PCP NEGATIVE QUAL (NEGATIVE); UDS - THC POSITIVE QUAL (NEGATIVE)
--- NOTE | 2020-05-13 22:50 | NUR ---
DR GUO NOTIFIED AND SITTER ORDERED. SITTER AT BEDSIDE. NOTIFIED CHARGE NURSE AND ATTENDING IN REGARDS TO ASSESSMENT FINDINGS. RESOURCES GIVEN TO PT AND SAFETY PLAN INITIATED.
[2020-05-14 00:43] VITALS: BP 136/70
== END 2020-05-14 00:43 ==
LOC: D.ER 19:38
PROVIDERS: Family Medicine
DX: R45.851 Suicidal ideations (principal); R51.9 Headache, unspecified; F31.9 Bipolar disorder, unspecified

== ENCOUNTER 2020-05-20 09:11 | Emergency (ER) | payer OTHER ==
[~2020-05-20] VITALS: Ht 170.2 cm; Wt 58.6 kg
[2020-05-20 09:36] VITALS: Ht 170.2 cm; Wt 58.6 kg
[2020-05-20 10:04] LABS: HCG URINE NEGATIVE (NEGATIVE)
[2020-05-20 10:13] LABS: BILIRUBIN NEGATIVE (NEGATIVE); KETONE SMALL mg/dL (NEGATIVE); NITRITE NEGATIVE (NEGATIVE); UROBILINOGEN NORMAL mg/dL (< 2)
[2020-05-20 10:14] LABS: SQUAMOUS EPITHELIAL 0-5 HPF (0-4); WHITE CELLS - URINE 0-5 HPF (0-4)
[2020-05-20 10:15] LABS: BACTERIA FEW HPF (NONE SEEN)
[2020-05-20 10:43] LABS: BASOPHILS 0.9 % (0-2); CALC OSMOLALITY 270 mosm/kg (275-300); CALCIUM 8.8 mg/dL (8.5-10.1); CARBON DIOXIDE 24.5 mmol/L (21.0-32.0); CHLORIDE - SERUM 103 mmol/L (98-107); CREATININE - SERUM 0.6 mg/dL (0.6-1.3); EOSINOPHILS 1.5 % (0-7); GLUCOSE 89 mg/dL (74-106); HEMATOCRIT 34.7 % (36.0-48.0); HEMOGLOBIN 11.6 g/dL (12-16); LYMPHOCYTE ABS# 0.97 10x3/uL (1.18-3.74); LYMPHOCYTES 28.9 % (15-50); MCH 30.5 pg (26.0-34.0); MCHC 33.4 g/dL (31.0-37.0); MCV 91.3 fL (80.0-100.0); MEAN PLATELET VOLUME 9.4 fL (7.4-10.4); MONOCYTES 7.7 % (2-11); NEUTROPHIL ABS# 2.05 10x3/uL (1.56-6.13); PLATELET COUNT 324 10x3/uL (130-400); RDW 13.8 % (11.5-14.5); SODIUM 137 mmol/L (136-145); UREA NITROGEN 7 mg/dL (7-18); WBC 3.4 10x3/uL (4.8-10.8); eGFR NON AFRICAN AMERICAN > 90 mL/min (90-120)
[2020-05-20 10:49] VITALS: BP 141/81
== END 2020-05-20 10:55 | disposition home or self-care (01) ==
LOC: D.ER 09:11
PROVIDERS: Emergency Medicine
DX: N92.0 Excessive and frequent menstruation with regular cycle (principal)